=== PATIENT | male | born 1955 | race Caucasian/White ===

== ENCOUNTER 2024-12-16 11:17 | Emergency (ER) | payer MEDICARE ==
[~2024-12-16] VITALS: Ht 182.9 cm; Wt 93.9 kg
--- NOTE | ~2024-12-16 | EKG ---
[facility] [address] [facility] [place], [place] [address] Draft EK completed, results pending confirmation PATIENT NAME: AKMERON HANSON Electrocardiogram DATE OF : 55 PHYSICIAN: PRELIMINARY REPORT #: [id number] REPORT IS CONFIDENTIAL AND NOT TO BE RELEASED WITHOUT AUTHORIZATION
[2024-12-16] MEDS ORDERED: fentaNYL citrate 100 MCG/2 ML VIAL ONE ×2 (11:26→12:57)
[2024-12-16] MEDS ORDERED: AMOXICILLIN500 MG PO (11:30)
[2024-12-16] MEDS ORDERED: fentaNYL citrate 100 MCG/2 ML VIAL IV ONE (11:45)
[2024-12-16] MEDS ORDERED: propofoL 100 ML IV ONE (12:44)
[2024-12-16] MEDS ORDERED: DEXAMETHASONE SOD PHOS 10 MG/ML VIAL ONE (12:52)
[2024-12-16 13:19] LABS: ALBUMIN 3.9 g/dL (3.4-5.0); ALBUMIN/GLOBULIN RATIO 1.08 (1.1-2.4); ANION GAP 13.4 (7-21); BILIRUBIN, TOTAL 1.4 mg/dL (0.2-1.0); BUN/CREATININE RATIO 14.95 (6.0-28.6); CALCIUM 8.8 mg/dL (8.5-10.1); CREATININE, SERUM 1.07 mg/dL (0.70-1.30); POTASSIUM 3.4 mmol/L (3.5-5.1); PROTEIN, TOTAL 7.5 g/dL (6.4-8.2)
[2024-12-16 15:06] VITALS: BP 134/71
== END 2024-12-16 15:06 | disposition home or self-care (01) ==
LOC: ED 11:17
PROVIDERS: Emergency Medicine
DX: S43.014A Anterior dislocation of right humerus, initial encounter (principal); S43.034A Inferior dislocation of right humerus, initial encounter; S61.214A Laceration without foreign body of right ring finger without damage to nail, initial encounter; W18.30XA Fall on same level, unspecified, initial encounter; Y93.67 Activity, basketball
CPT/HCPCS: 31500; 36415; 73030; 73140; 80053; 93005; 93010; J3010